=== PATIENT | male | born 1940 | race Two or more races ===

== ENCOUNTER → 2017-05-03 | Outpatient (CLI) | payer MEDICARE ==
[~2017-05-03] MED LIST: CENTRUM SILVER1 EAC3 PO; FLOMAX0.4 MG PO; LEVOTHYROXINE50 MCG PO; LISINOPRIL40 MG PO; NIASPAN1000 MG PO; TRAMADOL-ACETAMI1 EA PO; [UNRECOGNIZED DRUG - OTHER] PO; [UNRECOGNIZED DRUG - OTHER] PO
== END ==
LOC: RAD 08:26
PROVIDERS: ATTEND Internal Medicine Critical Care Medicine
DX: R06.02 Shortness of breath (principal); R06.00 Dyspnea, unspecified; I35.8 Other nonrheumatic aortic valve disorders; I27.20 Pulmonary hypertension, unspecified; J98.6 Disorders of diaphragm; R09.02 Hypoxemia; J98.4 Other disorders of lung
CPT/HCPCS: 93306